=== PATIENT | female | born 1950 ===

== ENCOUNTER 2017-11-11 11:31 | Emergency (ER) | payer MEDICARE, MEDICAID ==
[2017-11-11] MEDS ORDERED: Morphine 4 MG/ML VIAL ONE (12:11)
--- NOTE | 2017-11-11 12:42 | ED PDOC ---
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 Patient reports she was on her way to work, when she accidentally tripped on uneven sidewalk and fell forward. Patient is currently complaining of right wrist and right knee pain. She denies any other injuries or other medical complaints. PMD: None provided. Past Medical History Reviewed: Historical Data, Nursing Documentation, Vital Signs - Medical History PMH: Rheumatoid Arthritis - Surgical History Surgical History: No Surg Hx - Family History Family History: States: No Known Family Hx - Home Medications Home Medications: Ambulatory Orders Medication Instructions Recorded Betaine HCl/Folic Acid/Methy 1 cap PO DAILY 12/26/14 [B6-Folic Acid] Ibuprofen [Advil Liqui-Gels] 400 mg PO Q6 PRN 12/26/14 Methotrexate 10 cap PO QWK PRN 12/26/14 Dabigatran [Pradaxa] 150 mg PO BID #0 cap 12/29/14 oxyCODONE/Acetaminophen [Percocet 1 tab PO Q4 PRN #0 tab 12/29/14 5/325 mg Tab] Naproxen [Naprosyn] 500 mg PO BID PRN #15 tablet 11/11/17 oxyCODONE/Acetaminophen [Percocet 1 tab PO Q6 PRN #20 tab 11/11/17 5/325 mg Tab] - Allergies Allergies/Adverse Reactions: Allergies Allergy/AdvReac Type Severity Reaction Status Date / Time No Known Allergies Allergy Verified 12/26/14 19:27 Review of Systems ROS Statement: Except As Marked, All Systems Reviewed And Found Negative Musculoskeletal: Positive for: Hand Pain (right wrist injury), Leg Pain (right knee) Physical Exam - Reviewed Nursing Documentation Reviewed: Yes Vital Signs Reviewed: Yes - Physical Exam Appears: Positive for: Non-toxic, No Acute Distress Head Exam: Positive for: ATRAUMATIC, NORMOCEPHALIC Skin: Positive for: Normal Color, Warm, Dry Eye Exam: Positive for: Normal appearance, EOMI, PERRL Neck: Positive for: Painless ROM Cardiovascular/Chest: Positive for: Regular Rate, Rhythm. Negative for: Murmur Respiratory: Positive for: Normal Breath Sounds. Negative for: Respiratory Distress Pulses-Radial (L): 2+ Pulses-Radial (R): 2+ Back: Positive for: Normal Inspection. Negative for: L CVA Tenderness, R CVA Tenderness, Vertebral Tenderness Extremity: Positive for: Normal ROM (right knee able to bend), Deformity ( obvious deformity on right wrist, distal sensation intact, <2 sec cap refill, able to move all digits) Neurologic/Psych: Positive for: Alert, Oriented. Negative for: Motor/Sensory Deficits Medical Decision Making Medical Decision Making: Initial Impression: right wrist injury s/p fall Initial Plan: --Knee 3 views RT [RAD] --Morphine 2 mg IM --Tylenol 325mg tab 650 mg PO --Elbow right 3 views routine [RAD] --Hand right 3 views [RAD] --Shoulder right [RAD] --Reevaluation 13:[address] Castellon who agrees with elsa casey and to follow up with him as an outpatient. Sugar tong splint placed by tech. Pt reexamined, distal to splint sensation intact, moving all digits, <2 sec cap refill, no edema, pt without complaints. Scribe Attestation: Documented by Myron Padron, acting as a scribe for Franchesca Lockett MD Provider Scribe Attestation: All medical record entries made by the Scribe were at my direction and personally dictated by me. I have reviewed the chart and agree that the record accurately reflects my personal performance of the history, physical exam, medical decision making, and the department course for this patient. I have also personally directed, reviewed, and agree with the discharge instructions and disposition. Disposition - Clinical Impression Clinical Impression: Fracture of wrist - Disposition Referrals: Jc Hess MD [Staff Provider] - [id number] [Outside] Disposition: Routine/Home Disposition Time: 13:14 Condition: STABLE Prescriptions: Naproxen [Naprosyn] 500 mg PO BID PRN #15 tablet PRN Reason: Pain, Moderate (4-7) oxyCODONE/Acetaminophen [Percocet 5/325 mg Tab] 1 tab PO Q6 PRN #20 tab PRN Reason: Pain, Moderate (4-7) Instructions: Wrist Fracture (DC) Forms: [employer] (Peruvian) Print Language: VIETNAMESE
--- NOTE | 2017-11-11 13:39 | RAD ---
PROCEDURE: Radiographs of the Right Shoulder HISTORY: Fall COMPARISON: No prior. FINDINGS: BONES: Diffuse osteopenia suggests osteoporosis. No displaced fracture is appreciable and there is no destructive bony lesion evident. Degenerative changes seen the acromioclavicular joint which are moderate to severe with mild glenohumeral joint degenerative related cortical sclerosis evident. Local soft tissues appear unremarkable diffusely. OTHER FINDINGS: None. IMPRESSION: No acute fractures or dislocation appreciable. Degenerative changes seen at the acromioclavicular and glenohumeral joints. Diffuse osteopenia suggests osteoporosis.
--- NOTE | 2017-11-11 13:42 | RAD ---
PROCEDURE: Radiographs of the right elbow. HISTORY: Fall COMPARISON: No prior. FINDINGS: BONES: Normal. No fracture. JOINTS: Normal. No osteoarthritis. SOFT TISSUES: Normal. JOINT EFFUSION: None. OTHER FINDINGS: None. IMPRESSION: No acute findings related to/accounting for the clinical presentation.
--- NOTE | 2017-11-11 13:42 | RAD ---
PROCEDURE: Right Wrist Radiographs. HISTORY: Fall COMPARISON: None. FINDINGS: BONES: Impacted, comminuted fracture distal radius with an intra-articular component and ventral angulation. Acute ulnar styloid fracture. JOINTS: Normal. No dislocation. SOFT TISSUES: Soft tissue swelling attests to the acuity of the fracture. OTHER FINDINGS: None. IMPRESSION: Acute fracture distal radius (comminuted -intra-articular) and ulnar styloid.
--- NOTE | 2017-11-11 13:43 | RAD ---
PROCEDURE: Right Knee Radiographs. HISTORY: Fall COMPARISON: None. FINDINGS: BONES: Normal. No fracture. JOINTS: Normal. No osteoarthritis. JOINT EFFUSION: None. OTHER FINDINGS: None. IMPRESSION: Normal radiographs of the right knee.
--- NOTE | 2017-11-11 13:44 | RAD ---
PROCEDURE: Right Hand Radiographs. HISTORY: Fall COMPARISON: None. FINDINGS: BONES: Diffuse osteopenia suggests osteoporosis. No acute hand fracture is identified with degenerative change seen throughout the interphalangeal joints diffusely on a [id number] basis. Local soft tissues appear unremarkable. Note is made of comminuted fracture of the distal radius and ulnar styloid fracture addressed in separate right wrist radiograph series also performed 11/11/2017. Please see separate report. JOINTS: As above. SOFT TISSUES: As above. OTHER FINDINGS: None. IMPRESSION: No acute fracture or dislocation right hand although diffuse osteopenia suggests osteoporosis. Right wrist fractures as discussed above intestine is separate right wrist radiograph series also performed 11/11/2017. Please see separate report.
[2017-11-11 14:07] VITALS: BP 125/80; PULSE 79; RESP 16; TEMP 97.9; O2SAT 99
== END 2017-11-11 14:07 | disposition home or self-care (01) ==
LOC: H.ER 11:31
DX: S62.101A Fracture of unspecified carpal bone, right wrist, initial encounter for closed fracture (principal); W01.0XXA Fall on same level from slipping, tripping and stumbling without subsequent striking against object, initial encounter; Y92.480 Sidewalk as the place of occurrence of the external cause
CPT/HCPCS: 29125; 73030; 73080; 73110; 73130; 73562; 96372; 99284; J2270

== ENCOUNTER 2017-11-15 12:55 | Emergency (ER) | payer MEDICARE, MEDICAID ==
[2017-11-15 13:05] VITALS: BP 132/76; PULSE 73; RESP 18; TEMP 97.9; O2SAT 98
--- NOTE | 2017-11-15 14:18 | ED PDOC ---
Upper Extremity Pain/Injury Time Seen by Provider: 11/15/17 13:05 Chief Complaint (Nursing): Upper Extremity Problem/Injury Chief Complaint (Provider): Right Wrist fracture History Per: Patient History/Exam Limitations: no limitations Onset/Duration Of Symptoms: Days Current Symptoms Are (Timing): Still Present Additional Complaint(s): 67 year old female presents is brought into the emergency department by her daughter for a fracture to her right wrist she sustained on Friday. The patient 's daughter reports that she noticed the patient developing bruising and swelling to the fingers of her right hand. The patient further states that shee feels as though the splint was too tight. Patient reports that today she went to see her primary care provider who removed the splint and found blistering to the forearm. She sates that she feels much better with the splint off and has no numbness, tingling or pain. Patient reports that she was advised to present to the emergency department to have the splint replaced. Patient also states that she has an appointment scheduled for Friday with Dr. Robert liu. Past Medical History Reviewed: Historical Data, Nursing Documentation, Vital Signs Vital Signs: Last Vital Signs Temp 97.9 F 11/15/17 13:01 Pulse 73 11/15/17 13:01 Resp 18 11/15/17 13:01 BP 132/76 11/15/17 13:01 Pulse Ox 98 11/15/17 13:01 - Medical History PMH: Arthritis, Rheumatoid Arthritis - Surgical History Surgical History: No Surg Hx - Family History Family History: States: Unknown Family Hx - Living Arrangements Living Arrangements: With Family - Social History Current smoker - smoking cessation education provided: No Ex-Smoker (has not smoked in the last 12 months): No Alcohol: None Drugs: Denies - Home Medications Home Medications: Ambulatory Orders Medication Instructions Recorded Betaine HCl/Folic Acid/Methy 1 cap PO DAILY 12/26/14 [B6-Folic Acid] Ibuprofen [Advil Liqui-Gels] 400 mg PO Q6 PRN 12/26/14 Methotrexate 10 cap PO QWK PRN 12/26/14 Dabigatran [Pradaxa] 150 mg PO BID #0 cap 12/29/14 oxyCODONE/Acetaminophen [Percocet 1 tab PO Q4 PRN #0 tab 12/29/14 5/325 mg Tab] Naproxen [Naprosyn] 500 mg PO BID PRN #15 tablet 11/11/17 oxyCODONE/Acetaminophen [Percocet 1 tab PO Q6 PRN #20 tab 11/11/17 5/325 mg Tab] - Allergies Allergies/Adverse Reactions: Allergies Allergy/AdvReac Type Severity Reaction Status Date / Time No Known Allergies Allergy Verified 12/26/14 19:27 Review of Systems ROS Statement: Except As Marked, All Systems Reviewed And Found Negative Musculoskeletal: Positive for: Other (Right wrist pain) Neurological: Negative for: Numbness (no numbness or tingling to right wrist) Physical Exam - Reviewed Nursing Documentation Reviewed: Yes Vital Signs Reviewed: Yes - Physical Exam Appears: Positive for: Non-toxic, No Acute Distress Extremity: Positive for: Capillary Refill (less than 2 seconds), Swelling ( swelling and ecchymosis to all 5 fingers on right hand), Other (Right arm in ortho glass sugar tong splint; distal sensation intact and able to actively move all fingers; ) Neurologic/Psych: Positive for: Alert, Oriented - ECG O2 Sat by Pulse Oximetry: 98 (RA) Pulse Ox Interpretation: Normal Medical Decision Making Medical Decision Makin Initial Impression 67 year old female presenting with right wrist fracture Initial Plan: * Reevaluation Splint was removed by PA without difficulty which shows no casting patch in place. A 5cm linear vesicular rash was noted on the radial side of the distal forearm. No deformity to forearm but there is minimal swelling. Radial pulses 2+ . Cap refiills remain less than 2 seconds. Case discussed with Dr. Lockett who recommends the application of bacitracin ointment and resplinting Patient was again place don sugar tong splint by PA. Post immobilization exam revealed cap refills less than 2 seconds, distal sensation in tact. Patient is very happy with splint. She states that it is not tight and she is still pain free. Advised to follow up with Dr. Pimentel as scheduled. Documented by Yesi Travis acting as a scribe for Emil Rodríguez PA-C. All medical record entries made by the Scribe were at my direction and personally dictated by me. I have reviewed the chart and agree that the record accurately reflects my personal performance of the history, physical exam, medical decision making, and the department course for this patient. I have also personally directed, reviewed, and agree with the discharge instructions and disposition. Disposition - Clinical Impression Clinical Impression: Irritant dermatitis, Aftercare for cast or splint check or change - Patient ED Disposition Is Patient to be Admitted: No - Disposition Referrals: [facility] Tame[facility] [Outside] Disposition: Routine/Home Disposition Time: 13:45 Condition: STABLE Additional Instructions: Follow up with Dr. Robert Liu on Friday as scheduled. Return to ED immediately if symptoms worsen. Instructions: Cast Care Forms: [employer] (Cymraes) Print Language: MONTENEGRIN
== END 2017-11-15 14:07 | disposition home or self-care (01) ==
LOC: H.ER 12:55
DX: Z47.89 Encounter for other orthopedic aftercare (principal); L30.9 Dermatitis, unspecified; M06.9 Rheumatoid arthritis, unspecified; Z79.01 Long term (current) use of anticoagulants